=== PATIENT | female | born 2000 | race Caucasian/White ===

== ENCOUNTER 2022-09-12 18:16 | Emergency (ER) | payer OTHER ==
[~2022-09-12] VITALS: Ht 160 cm; Wt 68.2 kg
[2022-09-12 18:19] VITALS: BP 115/74
[2022-09-12] MEDS ORDERED: amox tr/potassium clavulanate 875/125mg TAB PO ONE (18:35)
[2022-09-12] MEDS ORDERED: AMOX-580 PO (18:36)
== END 2022-09-12 18:46 | disposition home or self-care (01) ==
LOC: ER 18:18
DX: H66.92 Otitis media, unspecified, left ear (principal)
CPT/HCPCS: 99283